=== PATIENT | female | born 1940 | race Two or more races ===

== ENCOUNTER 2018-01-16 05:28 | Day surgery (SDC) | payer OTHER ==
[~2018-01-16 05:28] MED LIST: AMLODIPINE BESYL5 MG PO; PRAVASTATIN SOD10 MG PO
[2018-01-16] MEDS ORDERED: PERCOCET 5-3251 EACH PO (08:12)
== END 2018-01-16 10:10 | disposition home or self-care (01) ==
LOC: CIR.AMB 05:28
DX: R15.9 Full incontinence of feces (principal)
CPT/HCPCS: 64581; C1778

== ENCOUNTER 2018-01-30 05:00 | Day surgery (SDC) | payer OTHER ==
[~2018-01-30 05:00] MED LIST changes: +PERCOCET 5-3251 EACH PO
[2018-01-30] MEDS ORDERED: ULTRACET PO (08:06)
== END 2018-01-30 09:55 | disposition home or self-care (01) ==
LOC: CIR.AMB 05:00
DX: R15.9 Full incontinence of feces (principal)
CPT/HCPCS: 64590; C1767

== ENCOUNTER 2019-11-12 05:11 | Day surgery (SDC) | payer OTHER ==
[~2019-11-12 05:11] MED LIST changes: +ULTRACET PO
[2019-11-12] MEDS ORDERED: ULTRACET PO (08:47)
== END 2019-11-12 10:55 | disposition home or self-care (01) ==
LOC: CIR.AMB 05:11 → ADM 08:30 → CIR.AMB 08:30
DX: T83.113A Breakdown (mechanical) of other urinary stents, initial encounter (principal)
CPT/HCPCS: 64581; 64590; C1767; C1778

== ENCOUNTER 2022-01-04 09:33 | Day surgery (SDC) | payer OTHER ==
[~2022-01-04] VITALS: Ht 162.6 cm; Wt 63.5 kg
[~2022-01-04 09:33] MED LIST changes: +ARTIFICIALS TEA30 ML OP
[2022-01-04] MEDS ORDERED: ULTRACET PO (12:04)
== END 2022-01-04 14:30 | disposition home or self-care (01) ==
LOC: CIR.AMB 09:33
PROVIDERS: ATTEND Surgery
DX: R15.9 Full incontinence of feces (principal); K62.89 Other specified diseases of anus and rectum; K57.30 Diverticulosis of large intestine without perforation or abscess without bleeding; Z20.822 Contact with and (suspected) exposure to COVID-19; I10 Essential (primary) hypertension
CPT/HCPCS: 64581; 95972; C1778